=== PATIENT | female | born 1970 | race Hispanic/Latino ===

== ENCOUNTER 2019-06-16 02:59 | Emergency (ER) | payer OTHER ==
[~2019-06-16 02:59] MED LIST: CEFU500T67 PO; IBUP-2076 PO; METF750T PO
[2019-06-16] MEDS ORDERED: NEOMY SULF/BACITRA/POLYMYXIN B 1 EACH PACKET TP ONE (03:16)
[2019-06-16] MEDS ORDERED: AMOXICILLIN 500 MG CAPSULE PO ONE (03:21)
[2019-06-16] MEDS ORDERED: KETOROLAC TROMETHAMINE 60 MG/2 ML VIAL ONE (03:21)
== END 2019-06-16 03:59 | disposition home or self-care (01) ==
LOC: EDH 02:59
DX: S81.851A Open bite, right lower leg, initial encounter (principal); E11.9 Type 2 diabetes mellitus without complications; Z79.899 Other long term (current) drug therapy; W54.0XXA Bitten by dog, initial encounter; Y93.89 Activity, other specified; Y92.89 Other specified places as the place of occurrence of the external cause; Y99.8 Other external cause status
CPT/HCPCS: 73590; 96372; 99283; J1885

== ENCOUNTER 2023-05-11 20:03 | Emergency (ER) | payer OTHER ==
[~2023-05-11] VITALS: Ht 154.9 cm; Wt 65.8 kg
[2023-05-11 21:13] LABS: BASOPHILS # (AUTO) 0.06 K/uL (0.00-0.20); BASOPHILS % (AUTO) 0.7 % (0.0-5.0); EOSINOPHILS # (AUTO) 0.14 K/uL (0.00-0.70); EOSINOPHILS % (AUTO) 1.5 % (0.0-8.0); HEMATOCRIT 42.7 % (36-48); IMMATURE GRANULOCYTE ABSOLUTE 0.03 K/uL (0-1); LYMPHOCYTES # (AUTO) 2.4 K/uL (1.0-4.8); LYMPHOCYTES % (AUTO) 25.7 % (21.0-51.0); MEAN CORPUSCULAR HEMOGLOBIN 23.7 pg (27.0-33.0); MEAN CORPUSCULAR HGB CONC 31.4 g/dL (32.0-36.0); MEAN CORPUSCULAR VOLUME 75.4 fL (79-99); MONOCYTES # (AUTO) 1.7 K/uL (0.1-1.0); MONOCYTES % (AUTO) 18.5 % (3.0-13.0); NEUTROPHILS # (AUTO) 4.9 K/uL (1.8-7.7); NEUTROPHILS % (AUTO) 53.3 % (40.0-77.0); PLATELET COUNT (AUTO) 336 K/uL (130-400); RED BLOOD CELL COUNT(AUTO) 5.66 MIL/uL (4.00-5.50); RED CELL DISTRIBUTION WIDTH 16.3 % (11.0-15.5); WHITE BLOOD COUNT (AUTO) 9.1 K/uL (4.8-10.8)
[2023-05-11 21:25] LABS: CREATININE 0.8 mg/dL (0.5-1.5); POTASSIUM 3.5 mmol/L (3.5-5.1)
[2023-05-11 21:29] LABS: ALBUMIN 3.9 g/dL (3.5-5.0); BILIRUBIN,TOTAL 1.3 mg/dL (0.2-1.0); TOTAL PROTEIN, SERUM 8.3 g/dL (6.0-8.3)
[2023-05-12] MEDS ORDERED: AMOX/CLAV 875/125MG TAB PO ONE
[2023-05-12] MEDS ORDERED: HYDROCODONE/ACETAMINOPHEN 5/325 MG TAB PO ONE
[2023-05-12] MEDS: CEFTRIAXONE 1G VIAL IVPB ONE (00:17)
[2023-05-12] MEDS: MORPHINE 2 MG SYG IVP ONE (00:17)
[2023-05-12] MEDS: CEFTRIAXONE 1G VIAL IM ONE (00:17)
[2023-05-12] MEDS: ONDANSETRON ODT 4MG TAB SL ONE (00:17)
[2023-05-12] MEDS: MORPHINE 4 MG SYG IM ONE (01:32)
[2023-05-12] MEDS: LIDOCAINE HCL 2% VISCOUS 15 ML UDCUP ONE (02:45)
[2023-05-12 03:57] VITALS: BP 145/80; PULSE 88; RESP 18; O2SAT 98
[2023-05-12] MEDS ORDERED: AMOX1TAB16 PO (04:05)
[2023-05-12] MEDS ORDERED: CIPOTIC AD (04:05)
== END 2023-05-12 04:20 | disposition home or self-care (01) ==
LOC: EDH 20:03
DX: H60.8X1 Other otitis externa, right ear (principal); E11.9 Type 2 diabetes mellitus without complications; Z79.84 Long term (current) use of oral hypoglycemic drugs; Z79.899 Other long term (current) drug therapy; Z90.710 Acquired absence of both cervix and uterus; Z90.49 Acquired absence of other specified parts of digestive tract
CPT/HCPCS: 99284; 70486; 80053; 85025; 87040 ×2; 83605; 36415; 96365; 96375; 96372; J2270 ×2; J0696